=== PATIENT | male | born 1940 | race Caucasian/White ===

== ENCOUNTER 2016-08-26 09:20 | Observation (INO) | payer MEDICARE ==
[2016-08-26] MEDS ORDERED: LOPERAMIDE2 M2 PO (10:10)
[2016-08-26] MEDS ORDERED: AFRIN30 ML (10:12)
[2016-08-26] MEDS ORDERED: ADVIL PM CAPLE1 EACH PO (10:13)
[2016-08-26] MEDS ORDERED: IBUPROFEN200 M2 PO (10:14)
[2016-08-26] MEDS ORDERED: CLARITIN10 M6 PO (10:14)
[2016-08-26] MEDS ORDERED: ASPIRIN EC81 MG PO (10:16)
[2016-08-26] MEDS ORDERED: VITAMIN D35000 UNI2 PO (10:16)
[2016-08-26 10:18] LABS: BASO % 0.1 % (0-2); EOS % 0.2 % (0-7); HCT-HEMATOCRIT 43.3 % (36.0-53.5); HGB-HEMOGLOBIN 14.9 gm/dl (13.5-17.0); IMMATURE GRANULOCYTES ABSOLUTE 0.03 tho/cmm (0-0.03); IMMATURE GRANULOCYTES PERCENT 0.3 % (0-0.3); LYMPH ABSOLUTE COUNT 0.4 tho/cmm (0.8-4.5); MCH (MEAN CORPUSCULAR HGB) 32.5 pg (28.0-32.0); MCHC MEAN CORPUSCULAR HGB CONC 34.4 % (32.0-36.0); MCV (MEAN CELL VOLUME) 94.5 fl (82.0-96.0); MEAN PLATELET VOLUME 10.3 cmc (9.4-12.4); MONO % 2.8 % (0-12); MONOCYTE ABSOLUTE COUNT 0.3 tho/cmm (0.0-1.2); NEUTROPHIL ABSOLUTE COUNT 8.1 tho/cmm (1.6-8.0); NEUTROPHIL-AUTOMATED 8.1 tho/cmm (1.6-8.0); NEUTROPHILS % 91.6 % (40-80); PLATELET COUNT 199 tho/cmm (150-450); RED BLOOD COUNT 4.58 mil/cmm (4.40-5.70); RED CELL DISTRIBUTION WIDTH 13.3 % (12.4-16.4); WHITE BLOOD COUNT 8.9 tho/cmm (4.0-10.0)
[2016-08-26] MEDS ORDERED: ADCIRCA PO (10:18)
[2016-08-26] MEDS ORDERED: JANUVIA100 M1 PO (10:18)
[2016-08-26] MEDS ORDERED: METOPROLOL TART25 M1 PO (10:19)
[2016-08-26] MEDS ORDERED: SINGULAIR10 M1 PO (10:19)
[2016-08-26] MEDS ORDERED: COZAAR50 M1 PO (10:19)
[2016-08-26] MEDS ORDERED: AMARYL4 M1 PO (10:20)
[2016-08-26] MEDS ORDERED: NEURONTIN300 M1 PO ×2 (10:21→14:23)
[2016-08-26] MEDS ORDERED: FLONASE ALLERG9.9 ML (10:24)
[2016-08-26 10:40] LABS: ALBUMIN 3.7 g/dl (3.5-5.0); ALKALINE PHOSPHATASE 135 U/L (33-138); ALT/SGPT 26 U/L (12-78); BILIRUBIN,TOTAL 0.9 mg/dl (0.0-1.5); BLOOD UREA NITROGEN 23 mg/dl (6-24); C-REACTIVE PROTEIN 1.9 mg/dl (0-0.9); CALCIUM 8.3 mg/dl (8.5-10.5); CARBON DIOXIDE-VENOUS 21 mmol/L (22-32); CHLORIDE 106 mmol/l (96-110); CREATININE 0.95 mg/dl (0.60-1.30); GLUCOSE 230 mg/dL (70-110); SODIUM 138 mmol/L (135-145); eGFR VALUE FOR BLACK >90 mL/Min
[2016-08-26 10:41] LABS: ANION GAP 15 mmol/L (0-20); AST/SGOT 26 U/L (10-40); POTASSIUM 4.2 mmol/L (3.7-5.1)
[2016-08-26] MEDS ORDERED: CYANOCOBAL1000 MCG/3 SC (10:54)
[2016-08-26 11:38] LABS: URINE LEUKOCYTE ESTERASE NEGATIVE (NEG); URINE PROTEIN NEGATIVE (NEG); URINE SPECIFIC GRAVITY 1.015 (1.003-1.030)
[2016-08-26 11:41] LABS: URINE APPEARANCE CLEAR; URINE BILIRUBIN NEGATIVE (NEG); URINE BLOOD NEGATIVE (NEG); URINE COLOR YELLOW; URINE GLUCOSE (UA) MODERATE (NEG); URINE KETONE NEGATIVE (NEG); URINE NITRITE NEGATIVE (NEG)
[2016-08-27 06:01] LABS: BASO % 0.2 % (0-2); HCT-HEMATOCRIT 39.7 % (36.0-53.5); HGB-HEMOGLOBIN 13.3 gm/dl (13.5-17.0); LYMPH % 9.5 % (20-45); LYMPH ABSOLUTE COUNT 0.5 tho/cmm (0.8-4.5); MCH (MEAN CORPUSCULAR HGB) 32.4 pg (28.0-32.0); MCHC MEAN CORPUSCULAR HGB CONC 33.5 % (32.0-36.0); MCV (MEAN CELL VOLUME) 96.6 fl (82.0-96.0); MEAN PLATELET VOLUME 10.5 cmc (9.4-12.4); MONO % 8.6 % (0-12); MONOCYTE ABSOLUTE COUNT 0.5 tho/cmm (0.0-1.2); NEUTROPHIL ABSOLUTE COUNT 4.7 tho/cmm (1.6-8.0); NEUTROPHIL-AUTOMATED 4.7 tho/cmm (1.6-8.0); NEUTROPHILS % 81.7 % (40-80); PLATELET COUNT 179 tho/cmm (150-450); RED BLOOD COUNT 4.11 mil/cmm (4.40-5.70); RED CELL DISTRIBUTION WIDTH 13.2 % (12.4-16.4); WHITE BLOOD COUNT 5.7 tho/cmm (4.0-10.0)
[2016-08-27 06:02] LABS: ANION GAP 14 mmol/L (0-20); BLOOD UREA NITROGEN 17 mg/dl (6-24); CALCIUM 8.3 mg/dl (8.5-10.5); CARBON DIOXIDE-VENOUS 25 mmol/L (22-32); CHLORIDE 105 mmol/l (96-110); CREATININE 0.87 mg/dl (0.60-1.30); GLUCOSE 231 mg/dL (70-110); SODIUM 140 mmol/L (135-145); eGFR VALUE FOR BLACK >90 mL/Min
[2016-08-27] MEDS ORDERED: DELTASONE20 MG PO (09:45)
[2016-08-27] MEDS ORDERED: ZITHROMAX250 M1 PO (09:49)
[2016-08-27] MEDS ORDERED: AUGMENTIN 875-1 EAC2 PO (09:49)
== END 2016-08-27 10:30 ==
LOC: EDMED 09:20 → EMR2 12:43 → CAR1 13:30
PROVIDERS: Nurse Practitioner Family; ADMIT Hospitalist
DX: J18.9 Pneumonia, unspecified organism (principal); E11.42 Type 2 diabetes mellitus with diabetic polyneuropathy; I10 Essential (primary) hypertension; I25.10 Atherosclerotic heart disease of native coronary artery without angina pectoris; Z95.1 Presence of aortocoronary bypass graft; R73.9 Hyperglycemia, unspecified; J44.9 Chronic obstructive pulmonary disease, unspecified; J45.909 Unspecified asthma, uncomplicated; M54.5 Low back pain; Z87.442 Personal history of urinary calculi; Z98.890 Other specified postprocedural states; Z79.82 Long term (current) use of aspirin; Z79.899 Other long term (current) drug therapy
CPT/HCPCS: G0378; G8978-GP-CI; G8979-GP-CI; G8980-GP-CH; J0456; J0696; J1650; J7030; J7050; J7512